=== PATIENT | female | born 1960 | race Caucasian/White ===

== ENCOUNTER 2016-12-27 15:45 | Emergency (ER) | payer SELFPAY ==
[2016-12-27 16:11] VITALS: BP 146/80
== END 2016-12-27 19:21 | disposition left against medical advice (07) ==
LOC: ED 15:45
DX: M54.9 Dorsalgia, unspecified (principal); M54.2 Cervicalgia; V89.2XXA Person injured in unspecified motor-vehicle accident, traffic, initial encounter; Y92.9 Unspecified place or not applicable; Z53.21 Procedure and treatment not carried out due to patient leaving prior to being seen by health care provider
CPT/HCPCS: 99281